=== PATIENT | male | born 1965 | race Caucasian/White ===

== ENCOUNTER 2017-02-16 20:58 | Emergency (ER) | payer OTHER ==
[~2017-02-16] VITALS: Ht 167.6 cm; Wt 81.6 kg
[~2017-02-16 20:58] MED LIST: ANTI INFLAMMATORY; ANTIBIOTIC O500 U/GM TP; CYCLOBENZAPRINE10 MG PO; FLEXERIL10 MG PO; FLEXERIL5 MG PO; HYDROCODONE BIT1 T11 PO; IBU800 MG PO; KEFLEX500 M1 PO; MOTRIN800 MG PO; Motrin,Rufen800 MG PO; NAPROSYN500 MG PO; NKHM PO; NORCO 325 MG-51 TAB PO; PERCOCET 325 MG1 TA2 PO; PERCOCET 325 MG1 TA7 PO; PREDNICOT20 MG PO; PREDNISONE10 MG PO; TOBRADEX 0.1%-0.5 ML OPH; [UNRECOGNIZED DRUG - OTHER] PO
[2017-02-16 23:08] LABS: BASO % 0.2 % (0.0-1.0); EOS # 0.1 10*3/uL (0.0-0.4); EOS % 0.7 % (1.0-4.0); HEMATOCRIT 33.2 % (42.0-52.0); HEMOGLOBIN 11.6 g/dl (14.0-18.0); LYMPH # 4.2 10*3/uL (1.3-4.4); MEAN CELL VOLUME 90.7 fl (80.0-94.0); MEAN CORPUSCULAR HGB 31.7 pg (27.0-31.0); MEAN CORPUSCULAR HGB CONC 34.9 g/dl (33.0-37.0); MEAN PLATELET VOLUME 10.9 fl (9.6-12.3); MONO # 0.7 10*3/uL (0.1-1.0); MONO % 5.9 % (3.0-9.0); NEUT % 57.9 % (47.0-73.0); PLATELET COUNT AUTOMATED 124 10*3/uL (130-400); RED BLOOD COUNT 3.66 10*6/uL (4.50-5.90); RED CELL DISTRI WIDTH 12.2 % (0-14.5); WHITE BLOOD COUNT 12.1 10*3/uL (4.8-10.8)
[2017-02-16 23:28] LABS: ALBUMIN 3.6 gm/dl (3.1-4.5); ALKALINE PHOSPHATASE 46 U/L (45-117); BILIRUBIN, TOTAL 0.3 mg/dl (0.2-1.0); BUN 3 mg/dl (7-24); CARBON DIOXIDE 22 mmol/L (21-32); CHLORIDE 105 mmol/L (98-107); EST GLOM FILT AFRICAN AMERICAN > 60 ml/min; GLUCOSE 87 mg/dL (65-99); POTASSIUM 3.5 mmol/L (3.5-5.1); SGOT/AST 54 IU/L (3-35); SGPT/ALT 33 U/L (12-78); SODIUM 139 mmol/L (136-145); TOTAL PROTEIN 6.5 gm/dL (6.4-8.2)
== END 2017-02-17 01:32 | disposition home or self-care (01) ==
LOC: ED 20:58
PROVIDERS: Registered Nurse
DX: S92.002A Unspecified fracture of left calcaneus, initial encounter for closed fracture (principal); S91.012A Laceration without foreign body, left ankle, initial encounter; F10.120 Alcohol abuse with intoxication, uncomplicated; F17.200 Nicotine dependence, unspecified, uncomplicated; Z90.49 Acquired absence of other specified parts of digestive tract; V86.59XA Driver of other special all-terrain or other off-road motor vehicle injured in nontraffic accident, initial encounter; Y93.89 Activity, other specified; Y92.413 State road as the place of occurrence of the external cause; Y99.9 Unspecified external cause status

== ENCOUNTER 2019-09-25 17:39 | Emergency (ER) | payer OTHER ==
[~2019-09-25] VITALS: Ht 182.8 cm; Wt 68.0 kg
== END 2019-09-25 17:49 | disposition left against medical advice (07) ==
LOC: ED 17:39
DX: T40.1X1A Poisoning by heroin, accidental (unintentional), initial encounter (principal); Z53.21 Procedure and treatment not carried out due to patient leaving prior to being seen by health care provider

== ENCOUNTER 2021-04-13 15:29 | Inpatient (IN) | payer OTHER ==
[~2021-04-13] VITALS: Ht 170.1 cm; Wt 73.3 kg
[2021-04-13 15:34] VITALS: BP 123/68
[2021-04-13 15:55] LABS: BASO % 0.2 % (0.0-1.0); HEMATOCRIT 45.1 % (42.0-52.0); LYMPH # 1.8 10*3/uL (1.3-4.4); LYMPH % 14.6 % (27.0-41.0); MEAN CELL VOLUME 83.2 fl (80.0-94.0); MEAN CORPUSCULAR HGB 29.3 pg (27.0-31.0); MEAN CORPUSCULAR HGB CONC 35.3 g/dl (33.0-37.0); MONO # 0.4 10*3/uL (0.1-1.0); MONO % 3.2 % (3.0-9.0); NEUT # 9.9 10*3/uL (2.3-7.9); NEUT % 81.8 % (47.0-73.0); PLATELET COUNT AUTOMATED 288 10*3/uL (130-400); RED BLOOD COUNT 5.42 10*6/uL (4.50-5.90); RED CELL DISTRI WIDTH 12.7 % (0-14.5); WHITE BLOOD COUNT 12.1 10*3/uL (4.8-10.8)
[2021-04-13 16:14] LABS: ALBUMIN 4.3 gm/dl (3.1-4.5); ALKALINE PHOSPHATASE 89 U/L (45-117); BUN 10 mg/dl (7-24); CHLORIDE 102 mmol/L (98-107); CREATININE 1.01 mg/dL (0.70-1.30); LIPASE 111 U/L (73-393); POTASSIUM 3.3 mmol/L (3.5-5.1); SGOT/AST 23 IU/L (3-35); SGPT/ALT 27 U/L (12-78); SODIUM 135 mmol/L (136-145); TOTAL PROTEIN 8.7 gm/dL (6.4-8.2)
[2021-04-13 16:22] LABS: ETHYL ALCOHOL < 3.0 mg/dl (<3); TROPONIN I < 0.015 ng/ml (<0.045)
[2021-04-13 19:54] VITALS: BP 118/61
[2021-04-13 21:06] VITALS: BP 147/98
[2021-04-14] VITALS: BP 138/64
[2021-04-14 06:08] LABS: ALBUMIN 3.6 gm/dl (3.1-4.5); ALKALINE PHOSPHATASE 70 U/L (45-117); BUN 12 mg/dl (7-24); CHLORIDE 107 mmol/L (98-107); CHOLESTEROL 110 mg/dL (<200); CREATININE 0.74 mg/dL (0.70-1.30); FREE T4 1.22 ng/dl (0.76-1.46); LDL CHOLESTEROL 64 mg/dL (9-159); SGOT/AST 17 IU/L (3-35); SGPT/ALT 24 U/L (12-78); SODIUM 136 mmol/L (136-145); TRIGLYCERIDES 60 mg/dl (<150)
[2021-04-14 06:14] LABS: THYROID STIM HORMONE (HS) 0.954 uIU/ml (0.358-4.75)
[2021-04-14 06:33] LABS: BASO % 0.1 % (0.0-1.0); EOS % 0.1 % (1.0-4.0); HEMATOCRIT 40.8 % (42.0-52.0); LYMPH # 3.8 10*3/uL (1.3-4.4); MEAN CORPUSCULAR HGB 29.1 pg (27.0-31.0); MEAN CORPUSCULAR HGB CONC 33.6 g/dl (33.0-37.0); MONO # 1.5 10*3/uL (0.1-1.0); MONO % 8.5 % (3.0-9.0); NEUT # 11.8 10*3/uL (2.3-7.9); NEUT % 68.9 % (47.0-73.0); PLATELET COUNT AUTOMATED 233 10*3/uL (130-400); WHITE BLOOD COUNT 17.1 10*3/uL (4.8-10.8)
[2021-04-14 06:34] LABS: BILIRUBIN Negative (Negative); BLOOD Negative (Negative); CLARITY Clear (Clear); COLOR Dark Yellow (Yellow); GLUCOSE Negative (Negative); KETONE 4+ (Negative); LEUKO ESTERASE Negative (Negative); NITRITE Negative (Negative); SPECIFIC GRAVITY 1.025 (1.001-1.030)
[2021-04-14 06:35] LABS: MEAN CELL VOLUME 86.8 fl (80.0-94.0)
[2021-04-14 06:45] LABS: URINE AMPHETAMINES < 1000 (1000ng/ml); URINE BARBITURATES < 200 (200ng/ml); URINE BENZODIAZEPINES < 200 (200ng/ml); URINE CANNABINOIDS (THC) > 50 (50ng/ml); URINE COCAINE < 300 (300ng/ml); URINE METHADONE < 300 (300ng/ml); URINE OPIATES < 300 (300ng/ml)
[2021-04-14 06:46] LABS: URINE PHENCYCLIDINE < 25 (25ng/ml)
[2021-04-14 07:18] LABS: BACTERIA TRACE; MUCOUS 2+; WBC 0-2 wbc/hpf (0-5)
[2021-04-14 08:00] VITALS: BP 128/78
[2021-04-14 08:56] LABS: VITAMIN D, 25-HYDROXY 39.1 ng/mL (30-100)
[2021-04-14 12:00] VITALS: BP 132/78
[2021-04-14 16:00] VITALS: BP 135/70
[2021-04-14 20:00] VITALS: BP 143/70
[2021-04-15] VITALS: BP 148/65
[2021-04-15 06:13] LABS: HEMATOCRIT 39.6 % (42.0-52.0); MEAN CELL VOLUME 87.6 fl (80.0-94.0); MEAN CORPUSCULAR HGB 29.2 pg (27.0-31.0); MEAN CORPUSCULAR HGB CONC 33.3 g/dl (33.0-37.0); MEAN PLATELET VOLUME 11.9 fl (9.6-12.3); PLATELET COUNT AUTOMATED 209 10*3/uL (130-400); RED BLOOD COUNT 4.52 10*6/uL (4.50-5.90); RED CELL DISTRI WIDTH 12.9 % (0-14.5); WHITE BLOOD COUNT 13.5 10*3/uL (4.8-10.8)
[2021-04-15 06:19] LABS: CHLORIDE 107 mmol/L (98-107); POTASSIUM 3.6 mmol/L (3.5-5.1); SODIUM 137 mmol/L (136-145)
[2021-04-15 06:23] LABS: BUN 9 mg/dl (7-24)
[2021-04-15 07:36] LABS: PLATELET SUFFICIENCY NORMAL (NORMAL); TOTAL CELLS COUNTED 100 #CELLS
[2021-04-15 07:45] VITALS: BP 126/71
[2021-04-15 11:16] VITALS: BP 120/58
[2021-04-15 16:23] VITALS: BP 126/73
[2021-04-15 20:00] VITALS: BP 108/61
[2021-04-16] VITALS: BP 131/76
[2021-04-16 08:00] VITALS: BP 126/81
[2021-04-16] MEDS ORDERED: ZOFRAN4 MG PO (08:39)
[2021-04-16] MEDS ORDERED: METHOCARBAMOL750 M1 PO (08:39)
[2021-04-16] MEDS ORDERED: ATARAX,VISTARIL50 MG PO (08:39)
[2021-04-16] MEDS ORDERED: DICYCLOMINE HCL20 MG PO (08:39)
[2021-04-16] MEDS ORDERED: ROPINIROLE HYD0.5 MG PO (08:39)
[2021-04-16] MEDS ORDERED: TEMAZEPAM15 M1 PO (08:45)
== END 2021-04-16 09:05 | disposition home or self-care (01) | DRG 243 ==
LOC: ED 15:29 → 5E 17:36 → EDHOLD 17:36 → 5E 20:08
PROVIDERS: Emergency Medicine; Internal Medicine; ADMIT Family Medicine; ATTEND Family Medicine
PROC: 4A02XM4 Measurement of Cardiac Total Activity, External Approach (ICD-10-PCS; principal; 2021-04-13)
PROC: 3E073KZ Introduction of Other Diagnostic Substance into Coronary Artery, Percutaneous Approach (ICD-10-PCS; 2021-04-13)
DX: K21.9 Gastro-esophageal reflux disease without esophagitis (principal); F11.23 Opioid dependence with withdrawal; E87.6 Hypokalemia; R73.9 Hyperglycemia, unspecified; D72.829 Elevated white blood cell count, unspecified; R00.8 Other abnormalities of heart beat; F17.210 Nicotine dependence, cigarettes, uncomplicated; Z90.49 Acquired absence of other specified parts of digestive tract; Z82.49 Family history of ischemic heart disease and other diseases of the circulatory system

== ENCOUNTER → 2022-06-06 | Outpatient (CLI) | payer OTHER ==
[~2022-06-06] MED LIST changes: +ATARAX,VISTARIL50 MG PO; +DICYCLOMINE HCL20 MG PO; +METHOCARBAMOL750 M1 PO; +ROPINIROLE HYD0.5 MG PO; +TEMAZEPAM15 M1 PO; +ZOFRAN4 MG PO
== END ==
LOC: LAB 16:10
PROVIDERS: ATTEND Physician Assistant Medical
DX: M25.552 Pain in left hip (principal); N40.1 Benign prostatic hyperplasia with lower urinary tract symptoms

== ENCOUNTER → 2023-02-15 | Emergency (ER) | payer OTHER | LOC: ED 16:19 | DX: R68.84 Jaw pain (principal); Z53.21 Procedure and treatment not carried out due to patient leaving prior to being seen by health care provider ==

== ENCOUNTER 2023-09-19 11:29 | Emergency (ER) | payer OTHER ==
[~2023-09-19] VITALS: Ht 170.1 cm; Wt 70.3 kg
[2023-09-19] MEDS ORDERED: Motrin,Rufen800 MG PO (14:13)
[2023-09-19] MEDS ORDERED: CYCLOBENZAPRINE5 M3 PO (14:13)
== END 2023-09-19 14:17 | disposition home or self-care (01) ==
LOC: ED 11:29
DX: M54.42 Lumbago with sciatica, left side (principal); M79.672 Pain in left foot; M25.552 Pain in left hip; Z98.890 Other specified postprocedural states; Z90.49 Acquired absence of other specified parts of digestive tract

== ENCOUNTER 2024-03-07 14:35 | Emergency (ER) | payer OTHER ==
[~2024-03-07] VITALS: Wt 68.0 kg
[~2024-03-07 14:35] MED LIST changes: +CYCLOBENZAPRINE5 M3 PO
[2024-03-07] MEDS ORDERED: Tdap Vaccine 0.5 ML SYR (Adult Vaccine) IM ONE (16:55)
[2024-03-07] MEDS ORDERED: SEPTDS PO (16:59)
[2024-03-07] MEDS ORDERED: CEPHALEXIN500 M1 PO (16:59)
[2024-03-07] MEDS ORDERED: Sulfamethoxazole/Trimethopri 1 TAB TAB PO ONE (17:00)
[2024-03-07] MEDS ORDERED: CEPHALEXIN 500 MG CAP PO ONE (17:00)
== END 2024-03-07 17:15 | disposition home or self-care (01) ==
LOC: ED 14:35
DX: S00.412A Abrasion of left ear, initial encounter (principal); B99.8 Other infectious disease; Z98.890 Other specified postprocedural states; Z90.49 Acquired absence of other specified parts of digestive tract; F17.200 Nicotine dependence, unspecified, uncomplicated; W01.198A Fall on same level from slipping, tripping and stumbling with subsequent striking against other object, initial encounter; Y93.89 Activity, other specified; Y92.89 Other specified places as the place of occurrence of the external cause; Y99.8 Other external cause status

== ENCOUNTER 2025-04-02 13:01 | Inpatient (IN) | payer OTHER ==
[~2025-04-02] VITALS: Ht 170.1 cm; Wt 74.6 kg
[~2025-04-02 13:01] MED LIST changes: +CEPHALEXIN500 M1 PO; +SEPTDS PO
[2025-04-02 13:12] VITALS: BP 97/61
[2025-04-02] MEDS ORDERED: Albuterol Sulf/Ipratropium 3 ML VIAL NEB ONE (13:30)
[2025-04-02 13:36] LABS: BASO # 0.1 10*3/uL (0.0-0.1); BASO % 0.4 % (0.0-1.0); EOS # 0.1 10*3/uL (0.0-0.4); EOS % 0.4 % (1.0-4.0); MEAN CELL VOLUME 92.0 fl (80.0-94.0); MEAN CORPUSCULAR HGB 30.6 pg (27.0-31.0); MEAN PLATELET VOLUME 9.1 fl (9.6-12.3); MONO # 0.8 10*3/uL (0.1-1.0); MONO % 5.0 % (3.0-9.0); NEUT # 12.0 10*3/uL (2.3-7.9); NEUT % 78.1 % (47.0-73.0); NUCLEATED RED BLOOD CELL 0.0 % (0.0-0.0); NUCLEATED RED BLOOD CELL 0.0 10*3/uL (0.0-0.0); PLATELET COUNT AUTOMATED 475 10*3/uL (130-400); RED CELL DISTRI WIDTH 14.2 % (0-14.5)
[2025-04-02 13:53] LABS: BUN 6 mg/dl (9-23)
[2025-04-02] MEDS ORDERED: Ketamine Hydrochloride 500 MG/10 ML VIAL IV ONE ×2 (14:00→14:25)
[2025-04-02] MEDS ORDERED: AZITHROMYCIN 250 ML IV ONE (15:10)
[2025-04-02] MEDS ORDERED: POTASSIUM CHLORIDE 20 MEQ TAB PO ONE (15:40)
[2025-04-02] MEDS ORDERED: ACETAMINOPHEN 650 MG SUPP R PRN (16:40)
[2025-04-02] MEDS ORDERED: BISACODYL 5 MG TAB PO PRN (16:40)
[2025-04-02] MEDS ORDERED: BISACODYL 10 MG SUPP R PRN (16:40)
[2025-04-02] MEDS ORDERED: ACETAMINOPHEN 325 MG TAB PO PRN (16:40)
[2025-04-02] MEDS ORDERED: Acetaminophen/Hydrocodone 5 MG/325 MG TABLET PO PRN (16:40)
[2025-04-02 16:57] VITALS: BP 106/73
[2025-04-02] MEDS ORDERED: Albuterol Sulf/Ipratropium 3 ML VIAL NEB SCH (17:00)
[2025-04-02] MEDS ORDERED: ESCITALOPRAM OXA5 MG PO (17:14)
[2025-04-02] MEDS ORDERED: CYCLOBENZAPRINE10 MG PO (17:14)
[2025-04-02] MEDS ORDERED: ALPRAZOLAM0.5 M3 PO (17:15)
[2025-04-02] MEDS ORDERED: AMITRIPTYLINE150 M1 PO (17:15)
[2025-04-02] MEDS ORDERED: PREDNISONE10 MG PO (17:15)
[2025-04-02] MEDS ORDERED: OMEPRAZOLE40 MG PO (17:15)
[2025-04-02] MEDS ORDERED: TRAMADOL HCL50 MG PO (17:16)
[2025-04-02 18:27] VITALS: BP 113/78
[2025-04-02 20:00] VITALS: BP 118/77
[2025-04-03] VITALS: BP 115/86
[2025-04-03 05:59] LABS: BASO # 0.0 10*3/uL (0.0-0.1); BASO % 0.2 % (0.0-1.0); EOS # 0.0 10*3/uL (0.0-0.4); EOS % 0.0 % (1.0-4.0); MEAN CELL VOLUME 91.5 fl (80.0-94.0); MEAN CORPUSCULAR HGB 30.9 pg (27.0-31.0); MEAN PLATELET VOLUME 9.5 fl (9.6-12.3); MONO # 0.6 10*3/uL (0.1-1.0); MONO % 3.3 % (3.0-9.0); NEUT # 15.7 10*3/uL (2.3-7.9); NEUT % 85.2 % (47.0-73.0); NUCLEATED RED BLOOD CELL 0.0 % (0.0-0.0); NUCLEATED RED BLOOD CELL 0.0 10*3/uL (0.0-0.0); PLATELET COUNT AUTOMATED 521 10*3/uL (130-400); RED CELL DISTRI WIDTH 14.3 % (0-14.5)
[2025-04-03 06:16] LABS: ACT PARTIAL THROMBO TIME 29.7 SECONDS (20.0-32.1)
[2025-04-03 07:01] LABS: VITAMIN D, 25-HYDROXY 38.0 ng/mL (30-100)
[2025-04-03 07:53] LABS: BUN 9 mg/dl (9-23); FREE T4 0.89 ng/dl (0.89-1.76); LDL CHOLESTEROL 59 mg/dL (9-159); SGPT/ALT 19 U/L (5-49)
[2025-04-03 08:00] VITALS: BP 130/92
[2025-04-03 11:52] VITALS: BP 143/98
[2025-04-03] MEDS ORDERED: Amitriptyline Hydrochloride 50 MG TAB PO SCH (12:55)
[2025-04-03] MEDS ORDERED: ALPRAZolam 0.5 MG TAB PO PRN (12:55)
[2025-04-03] MEDS ORDERED: METHYLPRED IV (14:11)
[2025-04-03] MEDS ORDERED: Ipratropium Brom3 ML NEB (14:11)
[2025-04-03] MEDS ORDERED: ENOXAPARIN100 MG/1 M SC (14:11)
[2025-04-03] MEDS ORDERED: LOPRESSOR25 MG PO (14:11)
[2025-04-03] MEDS ORDERED: DOXYCYCLINE HY100 M3 IV (14:11)
[2025-04-03] MEDS ORDERED: AZITHROMYCIN 250 ML IV SCH (15:00)
[2025-04-03 16:00] VITALS: BP 151/58
[2025-04-03] MEDS ORDERED: GUAIFENESIN 600 MG TAB ER PO SCH (22:00)
[2025-04-04] MEDS ORDERED: ESCITALOPRAM OXALATE 10 MG TAB PO SCH (10:00)
== END 2025-04-03 18:52 | disposition short-term general hospital (02) | DRG 143 ==
LOC: ED 13:01 → EDHOLD 15:59 → 5E 15:59
PROVIDERS: Nurse Practitioner Family; Student in an Organized Health Care Education/Training Program; ADMIT Internal Medicine; ATTEND Internal Medicine
PROC: 0W9930Z Drainage of Right Pleural Cavity with Drainage Device, Percutaneous Approach (ICD-10-PCS; principal; 2025-04-02)
DX: J93.0 Spontaneous tension pneumothorax (principal); E43 Unspecified severe protein-calorie malnutrition; J44.1 Chronic obstructive pulmonary disease with (acute) exacerbation; E87.1 Hypo-osmolality and hyponatremia; E83.51 Hypocalcemia; D64.9 Anemia, unspecified; I48.91 Unspecified atrial fibrillation; E87.6 Hypokalemia; K21.9 Gastro-esophageal reflux disease without esophagitis; D72.829 Elevated white blood cell count, unspecified; R73.9 Hyperglycemia, unspecified; J98.4 Other disorders of lung; F17.210 Nicotine dependence, cigarettes, uncomplicated; Z79.899 Other long term (current) drug therapy; Z79.01 Long term (current) use of anticoagulants; Z79.2 Long term (current) use of antibiotics; Z82.49 Family history of ischemic heart disease and other diseases of the circulatory system; Z68.25 Body mass index [BMI] 25.0-25.9, adult